=== PATIENT | male | born 1970 | race Caucasian/White ===

== ENCOUNTER 2022-12-29 11:27 | Emergency (ER) | payer OTHER, SELFPAY ==
[2022-12-29] VITALS (10 sets, daily range): BP systolic 128–156; BP diastolic 82–94; PULSE 68–87; RESP 10–18; TEMP 36.3–36.6; O2SAT 98–100
--- NOTE | ~2022-12-29 | XR_ITS ---
XR chest 2V 12/29/2022 12:26 Indication: Chest pain and shortness of breath Procedure: 2 view chest Comparison: No prior studies for comparison. Findings: Heart size normal. There are bilateral nodular densities in the lung bases, largest on the right measuring approximately 1.5 cm. No focal air space disease, pulmonary edema, pleural effusion o r suspected pneumothorax. Impression: 1: No acute cardiopulmonary disease. 2: Bilateral nodular densities in the lung bases. Recommend correlation with CT chest on nonemergent basis. Reviewed, dictated and finalized at location A. Impression: 1: No acute cardiopulmonary disease. 2: Bilateral nodular densities in the lung bases. Recommend correlation with C T chest on nonemergent basis.
--- NOTE | 2022-12-29 11:36 | ECG_ITS ---
Measurements Intervals [place] Rate: 83 P: 14 CO: 160 QRS: -15 QRSD: 92 T: 41 QT: 380 QTc: 448 Interpretive Statements SINUS RHYTHM BASELINE ARTIFACT- I, III, AVR, AVL, AVF NORMAL ECG NO PREVIOUS ECG AVAILABLE FOR COMPARISON Electronically Signed On 12-29-2022 17:16:04 CDT by Saman Vance D.O.
--- NOTE | 2022-12-29 11:42 | ED.DIZZY ---
HPI - Dizziness General Chief Complaint: Dizziness Stated Complaint: DIZZY Time Seen by Provider: 12/29/22 11:41 Source: patient and RN notes reviewed Mode of arrival: ambulatory Limitations: no limitations History of Present Illness HPI Narrative: Patient is 52 years old white female drove himself to the emergency room because of sudden onset of chest tightness, lightheadedness, nausea, tingling numbness of the hands and feet, shaking and jittery feeling inside after fighting with his boss at work today. Patient's symptoms resolved on arrival to the emergency room. History of anxiety, on Xanax. Patient had his Xanax at this morning before going to work because he knew is going to be a stressful day. Patient been working longer hours lately and no break. Feels very stressed. He denies any fever, chills. History of hypertension, hyperlipidemia and depression. Patient is telling me that been having trouble sleeping over the last few days because too much stress at work. Related Data Allergies Allergy/AdvReac Type Severity Reaction Status Date / Time No Known Allergies Allergy Verified 12/29/22 11:37 Review of Systems Review of Systems: All systems reviewed & are unremarkable except as noted in HPI and below Exam Narrative: General appearance: Well-developed, well-nourished Skin: Normal color Head: Normocephalic, nontraumatic Eyes: Clear conjunctiva ENT: Oropharynx normal, ears normal, nose normal Neck: Supple, nontender Chest and respiratory: Airway patent, no respiratory distress, no accessory muscle use Heart: Regular rate/rhythm Abdomen: Soft, nontender, no organomegaly, quiet bowel sounds Vascular: Normal peripheral pulses, normal capillary refill. Musculoskeletal: Normal range of motion, nontender back Neurologic: Alert and oriented ?3, REPLACER is normal as tested, no gross motor deficit Course Vital Signs Vital signs: Vital Signs Temperature 36.6 C 12/29/22 11:31 Pulse Rate 81 12/29/22 11:31 Respiratory Rate 18 12/29/22 11:31 Blood Pressure 150/91 H 12/29/22 11:31 Pulse Oximetry 99 12/29/22 11:31 Temperature 36.6 C 12/29/22 11:31 Pulse Rate 84 12/29/22 11:40 Respiratory Rate 14 12/29/22 11:36 Blood Pressure 156/94 H 12/29/22 11:36 Pulse Oximetry 100 12/29/22 11:36 MDM - Dizziness MDM Narrative Medical decision making narrative: Patient is 52 years old white male drove himself to the emergency room because of sudden onset of chest tightness, lightheadedness, dizziness, shaking numbness of the hands and feet after fighting with his boss at work prior to arrival. Patient had extra Xanax this morning prior to go to work because he knew is going to be a stressful day. Patient symptoms resolved immediately on arrival to the emergency room. Differential diagnosis anxiety-like symptoms. Physical examination showed no acute abnormalities except looks depressed Patient had history of hypertension and hyperlipidemia and depression. Cardiac work-up ordered, patient declined to take any Ativan or Xanax at this time because his feeling okay. Blood work-up showed no acute abnormality to explain patient condition. Chest x-ray showed no acute abnormalities, EKG showed normal sinus rhythm without any acute abnormalities. Anxiety-like symptoms is my concern. My plan to discharge patient home, excuse off work x3 days, and continue home Xanax as needed. The pt was discharged to home.the pt,s condition upon discharge was fair,education was provided to the pt in reference to the final impression,discharge study results,treatment,prognosis and need for follow up . Differential Diagnosis Differential diagnosis:
[2022-12-29 11:48] LABS: Basophils Percent Auto 0.5 % (0.2-1.2); Eosinophils Absolute Auto 0.2 K/mm3 (0-0.3); Eosinophils Percent Auto 3.9 % (0-4.4); Hemoglobin 13.7 g/dL (14.0-18.0); Immature Granulocyte Absolute 0.01 K/mm3 (0.00-0.031); Immature Granulocyte Percent A 0.2 % (0-0.5); Lymphocytes Absolute Auto 1.57 K/mm3 (0.9-3.2); Lymphocytes Percent Auto 27.7 % (18.3-44.2); Mean Corpuscular HGB Conc 35.1 g/dl (32-36); Mean Corpuscular Hemoglobin 32.2 pg (26-34); Mean Corpuscular Volume 91.5 fl (80-100); Mean Platelet Volume 9.5 fl (7.4-10.4); Monocytes Absolute Auto 0.6 K/mm3 (0.1-0.6); Monocytes Percent Auto 10.4 % (2.6-8.5); Neutrophils Absolute Auto 3.2 K/mm3 (1.3-6.7); Neutrophils Percent Auto 57.3 % (45.5-73.1); Platelet Count Result 300 k/mm3 (150-375); Red Blood Count 4.26 M/mm3 (4.6-6.20); Red Cell Distribution Width 12.2 % (11.5-14.5); White Blood Count 5.7 K/mm3 (4.5-10.0)
[2022-12-29 11:59] LABS: Partial Thromboplastin Time 26.1 SECONDS (22.3-36.8); Prothrombin Time 13.2 Seconds (11.1-14.7)
[2022-12-29 12:00] LABS: Alanine Aminotransferase 52 U/L (6-50); Alkaline Phosphatase 41 U/L (38-126); Anion Gap 5 mmol/L (8-16); Aspartate Amino Transferase 38 U/L (17-59); Bilirubin,Total 0.8 mg/dL (0.2-1.3); Blood Urea Nitrogen 11 mg/dL (9-20); Calcium 9.5 mg/dL (8.4-10.2); Carbon Dioxide 31 mmol/L (22-30); Chloride 100 mmol/L (98-107); Estimated CRCL calculation 142 ml/min; Estimated Glomerular Filt Rate > 60; Glucose 142 mg/dL (65-110); Lipase 51 U/L (23-300); Potassium 3.4 mmol/L (3.4-5.0); Sodium 136 mmol/L (137-145)
[2022-12-29 12:10] LABS: Troponin I < 0.012 ng/mL (0.000-0.034)
--- NOTE | 2022-12-29 12:34 | PC.NURSE ---
Pt feeling more calm and relaxed. Denies chest pain or SOB at this time. Updated on results of testing and negative troponin.
--- NOTE | 2022-12-29 12:57 | PC.NURSE ---
Clarified with Dr Ramos, no need for protocol aspirin prior to discharge.
== END 2022-12-29 12:56 | disposition home or self-care (01) ==
PROVIDERS: Emergency Provider Emergency Medicine; PCP Family Medicine
DX: F41.8 Other specified anxiety disorders (principal); I10 Essential (primary) hypertension; E78.5 Hyperlipidemia, unspecified; F32.A Depression, unspecified
CPT/HCPCS: 36415; 71046; 80053; 83690; 84484; 85025; 85610; 85730; 93005; 99283

== ENCOUNTER 2025-04-03 17:03 | Emergency (ER) | payer BC, SELFPAY ==
[2025-04-03 17:05] VITALS: BP 162/89; PULSE 92; RESP 18; TEMP 36.5; O2SAT 96
--- NOTE | 2025-04-03 17:16 | ED_ITS ---
HPI - Recheck/Abnormal Lab/Rx General Chief Complaint: Recheck/Abnormal Lab/Rx <Stormy Moore MD - Last Filed: 04/03/25 20:06> Stated Complaint: took extra BP meds <Stormy Moore MD - Last Filed: 04/03/25 20:06> Time Seen by Provider: 04/03/25 17:14 <Stormy Moore MD - Last Filed: 04/03/25 20:06> Source: patient <Stormy Moore MD - Last Filed: 04/03/25 20:06> Mode of arrival: ambulatory <Stormy Moore MD - Last Filed: 04/03/25 20:06> Limitations: no limitations <Stormy Moore MD - Last Filed: 04/03/25 20:06> History of Present Illness HPI narrative: Patient presents after an accidental overdose. Took his dose of amlodipine 10 mg as scheduled at 0900. He then had 3-4 beers at lunch and was doing work around the house. He knew that he needed to take his atorvastatin 20 mg but instead of grabbing bottle he accidentally grabbed his amlodipine again and took another 1 pill. He realized shortly after. He denies that this was intentional or or any suicidal ideation. Notes that he feels dizzy and nervous now but admits that I'm a little nervous at baseline.He called poison control and was advised to call his primary care physician. It is a Friday. Primary care physician on-call center operator did advise that he present to the emergency department. <Stormy Moore MD - Last Filed: 04/03/25 20:06> Related Data Allergies/Adverse Reactions: Allergies Allergy/AdvReac Type Severity Reaction Status Date / Time No Known Allergies Allergy Verified 04/03/25 17:04 <Stormy Moore MD - Last Filed: 04/03/25 20:06> [facility] Past Medical History Medical History: Medical History (Updated 04/03/25 @ 19:52 by Stormy Moore MD) HLD (hyperlipidemia) Hypertension <Stormy Moore MD - Last Filed: 04/03/25 20:06> Social History Social History: Social History Smoking packs per day: 1 Smoking cigarettes per day: 20.0 Smoking status: Current every day smoker Tobacco type: cigarettes <Stormy Moore MD - Last Filed: 04/03/25 20:06> Exam 2 Narrative: GENERAL: Well-appearing, well-nourished, and in no acute distress. HEAD: Normocephalic, atraumatic. EYES: Non injected, non icteric ENT: Nares clear, no rhinorrhea or epistaxis. Gross auditory acuity intact. NECK: Supple. No meningismus. CHEST: Speaking in full sentences. No respiratory distress. HEART: Regular rate and rhythm. ABDOMEN: Soft, nondistended. EXTREMITIES: Normal range of motion. SKIN: Warm, dry, no rash. NEURO: No focal deficits. Alert and oriented. Answering questions. Following commands. Normal speech without aphasia or dysarthria. PSYCH: Normal mood and affect. Denies suicidal ideation. Does not appear to be responding to internal stimuli. <Stormy Moore MD - Last Filed: 04/03/25 20:06> Course Vital Signs Vital signs: Vital Signs Temperature 36.5 C 04/03/25 17:05 Pulse Rate 92 04/03/25 17:05 Respiratory Rate 18 04/03/25 17:05 Blood Pressure 162/89 H 04/03/25 17:05 Pulse Oximetry 96 04/03/25 17:05 Oxygen Delivery Room Air 04/03/25 17:05 Temperature 36.5 C 04/03/25 17:05 Pulse Rate 79 04/03/25 18:43 Respiratory Rate 14 04/03/25 18:43 Blood Pressure 121/75 04/03/25 17:31 Pulse Oximetry 93 04/03/25 18:43 Oxygen Delivery Room Air 04/03/25 17:05 <Stormy Moore MD - Last Filed: 04/03/25 20:06> Vital Signs Temperature 36.5 C 04/03/25 17:05 Pulse Rate 92 04/03/25 17:05 Respiratory Rate 18 04/03/25 17:05 Blood Pressure 162/89 H 04/03/25 17:05 Pulse Oximetry 96 04/03/25 17:05 Oxygen Delivery Room Air 04/03/25 17:05 Temperature 36.5 C 04/03/25 17:05 Pulse Rate 79 04/03/25 18:43 Respiratory Rate 14 04/03/25 18:43 Blood Pressure 121/75 04/03/25 17:31 Pulse Oximetry 93 04/03/25 18:43 Oxygen Delivery Room Air 04/03/25 17:05 <Mark Callahan MD - Last Filed: 04/03/25 21:43> MDM - Recheck/Abnormal Lab/Rx MDM Narrative Medical decision making narrative: Patient presents with accidental overdose in which he took 1 additional tablet of 10mg amlodipine by accident as he thought it was atorvastatin 20mg. He had already taken his 1st dose of amlodipine at 9:00 a.m. this morning. In the emergency department he is afebrile vital signs notable for hypertension. I did notify the nurse that I would call poison Control to start the process of obtaining recommendation and spoke with contact representative Thaddeus. Case #[id number]. The do recommend observing the patient for 6-12 hours although 6 hours is reasonable given the timing of how far apart these medications were taken unless patient becomes symptomatic. They noted that patient would need cardiac monitoring and said that it was likely not necessary to obtain an EKG although because this is relatively noninvasive, reasonable to do so. They also noted that labs would not particularly be crucial although reasonable to obtain baseline in case patient decompensated. Given 2nd ingestion occurred at 4:00 p.m., this would be 10:00 p.m. Updated patient at approximately 5:50 p.m. and notes that he is a 1 [id number] smoker and in about an hour he anticipates having some fairly significant cravings. Amenable to trying a nicotine patch. Normocytic anemia. Potassium low at 2.8. Both IV and oral repletion are ordered. Repeat BMP will be timed for 21:00 so that it will result before 22:00. Patient borderline low on previous although this was a few years ago. He has slight hypo natremia, had been slightly low before. Patient has an anion gap but is not acidotic and with relatively normal glucose; suspect a degree of possible starvation/alcohol ketosis. Will give 1L IV fluids containing dextrose. Magnesium normal. Patient signed out to oncoming ED attending at 20:00 pending repeat lab and reassessment. <Stormy Moore MD - Last Filed: 04/03/25 20:06> Patient presents with accidental overdose in which he took 1 additional tablet of 10mg amlodipine by accident as he thought it was atorvastatin 20mg. He had already taken his 1st dose of amlodipine at 9:00 a.m. this morning. In the emergency department he is afebrile vital signs notable for hypertension. I did notify the nurse that I would call poison Control to start the process of obtaining recommendation and spoke with contact representative Thaddeus. Case #[id number]. The do recommend observing the patient for 6-12 hours although 6 hours is reasonable given the timing of how far apart these medications were taken unless patient becomes symptomatic. They noted that patient would need cardiac monitoring and said that it was likely not necessary to obtain an EKG although because this is relatively noninvasive, reasonable to do so. They also noted that labs would not particularly be crucial although reasonable to obtain baseline in case patient decompensated. Given 2nd ingestion occurred at 4:00 p.m., this would be 10:00 p.m. Updated patient at approximately 5:50 p.m. and notes that he is a 1 [id number] smoker and in about an hour he anticipates having some fairly significant cravings. Amenable to trying a nicotine patch. Normocytic anemia. Potassium low at 2.8. Both IV and oral repletion are ordered. Repeat BMP will be timed for 21:00 so that it will result before 22:00. Patient borderline low on previous although this was a few years ago. He has slight hypo natremia, had been slightly low before. Patient has an anion gap but is not acidotic and with relatively normal glucose; suspect a degree of possible starvation/alcohol ketosis. Will give 1L IV fluids containing dextrose. Magnesium normal. Patient signed out to oncoming ED attending at 20:00 pending repeat lab and reassessment. Repeat edema showed the the patient has been observed in the emergency department will discharged home <Mark Callahan MD - Last Filed: 04/03/25 21:43> Lab Data Attestation: I reviewed the patient's lab results. <Stormy Moore MD - Last Filed: 04/03/25 20:06> Result diagrams: 04/03/25 17:39 04/03/25 21:08 <Stormy Moore MD - Last Filed: 04/03/25 20:06> Labs: Lab Results 04/03/25 04/03/25 04/03/25 Range/Units 17:39 18:26 18:31 WBC 7.8 (4.5-10.0) K/mm3 RBC 3.91 L (4.6-6.20) M/mm3 Hgb 12.5 L (14.0-18.0) g/dL Hct 35.3 L (42.0-52.0) % MCV 90.3 (80-100) fl MCH 32.0 (26-34) pg MCHC 35.4 (32-36) g/dl RDW 12.3 (11.5-14.5) % Plt Count 247 (150-375) k/mm3 MPV 9.7 (7.4-10.4) fl Immature Gran % (Auto) 0.4 (0-0.5) % Neut % (Auto) 56.3 (45.5-73.1) % Lymph % (Auto) 28.2 (18.3-44.2) % [place] % (Auto) 11.7 H (2.6-8.5) % Eos % (Auto) 2.9 (0-4.4) % Baso % (Auto) 0.5 (0.2-1.2) % Lymph # (Auto) 2.21 (0.9-3.2) K/mm3 [place] # (Auto) 0.9 H (0.1-0.6) K/mm3 Eos # (Auto) 0.2 (0-0.3) K/mm3 Baso # (Auto) 0.0 (0.0-0.1) K/mm3 Abs Immat Gran (auto) 0.03 (0.00-0.031) K/mm3 Absolute Neuts (auto) 4.4 (1.3-6.7) K/mm3 Absolute Nucleated RBC 0.000 (0.0-0.012) K/mm3 Nucleated RBC % 0.0 (0.0-0.2) % Sodium 132 L (137-145) mmol/L Potassium 2.8 L* (3.4-5.0) mmol/L Chloride 95 L (98-107) mmol/L Carbon Dioxide 21 L (22-30) mmol/L Anion Gap 16 H (4-12) mmol/L BUN 16 (9-20) mg/dL Creatinine 0.63 L (0.7-1.3) mg/dL Estim Creat Clear Calc 148 ml/min Estimated GFR > 60 (59 - ) Glucose 115 H (65-110) mg/dL Calcium 9.1 (8.4-10.2) mg/dL Magnesium 1.9 (1.6-2.3) mg/dL Total Bilirubin 0.5 (0.2-1.3) mg/dL AST 34 (17-59) U/L ALT 41 (6-50) U/L Alkaline Phosphatase 31 L (38-126) U/L Total Protein 7.3 (6.3-8.2) g/dL Albumin 4.7 (3.5-5.1) g/dL Urine Color Yellow (Yellow) Urine Appearance Clear (Clear) Urine pH 7.0 (5.0-9.0) Ur Specific [place] 1.005 (1.001-1.035) Urine Protein Negative (Negative) mg/dL Urine Glucose (UA) Negative (Negative) mg/dL Urine Ketones Negative (Negative) mg/dL Ur Blood (Man) Negative (Negative) Urine Nitrate Negative (Negative) Urine Bilirubin Negative (Negative) Urine Urobilinogen 0.2 (<2.0) mg/dL Leukocyte Esterase Rfl Negative (Negative) JAXSON/UL Urine Opiates Screen Negative (Negative) Urine Methadone Screen Negative (Negative) Ur Barbiturates Screen Negative (Negative) Ur Phencyclidine Scrn Negative (Negative) Ur Amphetamine Screen Negative (Negative) U Benzodiazepines Scrn Negative (Negative) Urine Cocaine Screen Negative (Negative) U Cannabinoids Screen Negative (Negative) Ethyl Alcohol 83 (<10) mg/dL 04/03/ Range/Units 21:08 WBC (4.5-10.0) K/mm3 RBC (4.6-6.20) M/mm3 Hgb (14.0-18.0) g/dL Hct (42.0-52.0) % MCV (80-100) fl MCH (26-34) pg MCHC (32-36) g/dl RDW (11.5-14.5) % Plt Count (150-375) k/mm3 MPV (7.4-10.4) fl Immature Gran % (Auto) (0-0.5) % Neut % (Auto) (45.5-73.1) % Lymph % (Auto) (18.3-44.2) % [place] % (Auto) (2.6-8.5) % Eos % (Auto) (0-4.4) % Baso % (Auto) (0.2-1.2) % Lymph # (Auto) (0.9-3.2) K/mm3 [place] # (Auto) (0.1-0.6) K/mm3 Eos # (Auto) (0-0.3) K/mm3 Baso # (Auto) (0.0-0.1) K/mm3 Abs Immat Gran (auto) (0.00-0.031) K/mm3 Absolute Neuts (auto) (1.3-6.7) K/mm3 Absolute Nucleated RBC (0.0-0.012) K/mm3 Nucleated RBC % (0.0-0.2) % Sodium 134 L (137-145) mmol/L Potassium 3.5 (3.4-5.0) mmol/L Chloride 99 (98-107) mmol/L Carbon Dioxide 24 (22-30) mmol/L Anion Gap 11 (4-12) mmol/L BUN 12 (9-20) mg/dL Creatinine 0.56 L (0.7-1.3) mg/dL Estim Creat Clear Calc 165 ml/min Estimated GFR > 60 (59 - ) Glucose 154 H (65-110) mg/dL Calcium 9.1 (8.4-10.2) mg/dL Magnesium (1.6-2.3) mg/dL Total Bilirubin (0.2-1.3) mg/dL AST (17-59) U/L ALT (6-50) U/L Alkaline Phosphatase (38-126) U/L Total Protein (6.3-8.2) g/dL Albumin (3.5-5.1) g/dL Urine Color (Yellow) Urine Appearance (Clear) Urine pH (5.0-9.0) Ur Specific [place] (1.001-1.035) Urine Protein (Negative) mg/dL Urine Glucose (UA) (Negative) mg/dL Urine Ketones (Negative) mg/dL Ur Blood (Man) (Negative) Urine Nitrate (Negative) Urine Bilirubin (Negative) Urine Urobilinogen (<2.0) mg/dL Leukocyte Esterase Rfl (Negative) JAXSON/UL Urine Opiates Screen (Negative) Urine Methadone Screen (Negative) Ur Barbiturates Screen (Negative) Ur Phencyclidine Scrn (Negative) Ur Amphetamine Screen (Negative) U Benzodiazepines Scrn (Negative) Urine Cocaine Screen (Negative) U Cannabinoids Screen (Negative) Ethyl Alcohol (<10) mg/dL <Stormy Moore MD - Last Filed: 04/03/25 20:06> Lab Results 04/03/25 04/03/25 04/03/25 Range/Units 17:39 18:26 18:31 WBC 7.8 (4.5-10.0) K/mm3 RBC 3.91 L (4.6-6.20) M/mm3 Hgb 12.5 L (14.0-18.0) g/dL Hct 35.3 L (42.0-52.0) % MCV 90.3 (80-100) fl MCH 32.0 (26-34) pg MCHC 35.4 (32-36) g/dl RDW 12.3 (11.5-14.5) % Plt Count 247 (150-375) k/mm3 MPV 9.7 (7.4-10.4) fl Immature Gran % (Auto) 0.4 (0-0.5) % Neut % (Auto) 56.3 (45.5-73.1) % Lymph % (Auto) 28.2 (18.3-44.2) % [place] % (Auto) 11.7 H (2.6-8.5) % Eos % (Auto) 2.9 (0-4.4) % Baso % (Auto) 0.5 (0.2-1.2) % Lymph # (Auto) 2.21 (0.9-3.2) K/mm3 [place] # (Auto) 0.9 H (0.1-0.6) K/mm3 Eos # (Auto) 0.2 (0-0.3) K/mm3 Baso # (Auto) 0.0 (0.0-0.1) K/mm3 Abs Immat Gran (auto) 0.03 (0.00-0.031) K/mm3 Absolute Neuts (auto) 4.4 (1.3-6.7) K/mm3 Absolute Nucleated RBC 0.000 (0.0-0.012) K/mm3 Nucleated RBC % 0.0 (0.0-0.2) % Sodium 132 L (137-145) mmol/L Potassium 2.8 L* (3.4-5.0) mmol/L Chloride 95 L (98-107) mmol/L Carbon Dioxide 21 L (22-30) mmol/L Anion Gap 16 H (4-12) mmol/L BUN 16 (9-20) mg/dL Creatinine 0.63 L (0.7-1.3) mg/dL Estim Creat Clear Calc 148 ml/min Estimated GFR > 60 (59 - ) Glucose 115 H (65-110) mg/dL Calcium 9.1 (8.4-10.2) mg/dL Magnesium 1.9 (1.6-2.3) mg/dL Total Bilirubin 0.5 (0.2-1.3) mg/dL AST 34 (17-59) U/L ALT 41 (6-50) U/L Alkaline Phosphatase 31 L (38-126) U/L Total Protein 7.3 (6.3-8.2) g/dL Albumin 4.7 (3.5-5.1) g/dL Urine Color Yellow (Yellow) Urine Appearance Clear (Clear) Urine pH 7.0 (5.0-9.0) Ur Specific [place] 1.005 (1.001-1.035) Urine Protein Negative (Negative) mg/dL Urine Glucose (UA) Negative (Negative) mg/dL Urine Ketones Negative (Negative) mg/dL Ur Blood (Man) Negative (Negative) Urine Nitrate Negative (Negative) Urine Bilirubin Negative (Negative) Urine Urobilinogen 0.2 (<2.0) mg/dL Leukocyte Esterase Rfl Negative (Negative) JAXSON/UL Urine Opiates Screen Negative (Negative) Urine Methadone Screen Negative (Negative) Ur Barbiturates Screen Negative (Negative) Ur Phencyclidine Scrn Negative (Negative) Ur Amphetamine Screen Negative (Negative) U Benzodiazepines Scrn Negative (Negative) Urine Cocaine Screen Negative (Negative) U Cannabinoids Screen Negative (Negative) Ethyl Alcohol 83 (<10) mg/dL 04/03/25 Range/Units 21:08 WBC (4.5-10.0) K/mm3 RBC (4.6-6.20) M/mm3 Hgb (14.0-18.0) g/dL Hct (42.0-52.0) % MCV (80-100) fl MCH (26-34) pg MCHC (32-36) g/dl RDW (11.5-14.5) % Plt Count (150-375) k/mm3 MPV (7.4-10.4) fl Immature Gran % (Auto) (0-0.5) % Neut % (Auto) (45.5-73.1) % Lymph % (Auto) (18.3-44.2) % [place] % (Auto) (2.6-8.5) % Eos % (Auto) (0-4.4) % Baso % (Auto) (0.2-1.2) % Lymph # (Auto) (0.9-3.2) K/mm3 [place] # (Auto) (0.1-0.6) K/mm3 Eos # (Auto) (0-0.3) K/mm3 Baso # (Auto) (0.0-0.1) K/mm3 Abs Immat Gran (auto) (0.00-0.031) K/mm3 Absolute Neuts (auto) (1.3-6.7) K/mm3 Absolute Nucleated RBC (0.0-0.012) K/mm3 Nucleated RBC % (0.0-0.2) % Sodium 134 L (137-145) mmol/L Potassium 3.5 (3.4-5.0) mmol/L Chloride 99 (98-107) mmol/L Carbon Dioxide 24 (22-30) mmol/L Anion Gap 11 (4-12) mmol/L BUN 12 (9-20) mg/dL Creatinine 0.56 L (0.7-1.3) mg/dL Estim Creat Clear Calc 165 ml/min Estimated GFR > 60 (59 - ) Glucose 154 H (65-110) mg/dL Calcium 9.1 (8.4-10.2) mg/dL Magnesium (1.6-2.3) mg/dL Total Bilirubin (0.2-1.3) mg/dL AST (17-59) U/L ALT (6-50) U/L Alkaline Phosphatase (38-126) U/L Total Protein (6.3-8.2) g/dL Albumin (3.5-5.1) g/dL Urine Color (Yellow) Urine Appearance (Clear) Urine pH (5.0-9.0) Ur Specific [place] (1.001-1.035) Urine Protein (Negative) mg/dL Urine Glucose (UA) (Negative) mg/dL Urine Ketones (Negative) mg/dL Ur Blood (Man) (Negative) Urine Nitrate (Negative) Urine Bilirubin (Negative) Urine Urobilinogen (<2.0) mg/dL Leukocyte Esterase Rfl (Negative) JAXSON/UL Urine Opiates Screen (Negative) Urine Methadone Screen (Negative) Ur Barbiturates Screen (Negative) Ur Phencyclidine Scrn (Negative) Ur Amphetamine Screen (Negative) U Benzodiazepines Scrn (Negative) Urine Cocaine Screen (Negative) U Cannabinoids Screen (Negative) Ethyl Alcohol (<10) mg/dL <Mark Callahan MD - Last Filed: 04/03/25 21:43> ECG Data EKG #1: Attestation: I personally reviewed and interpreted this ECG as follows: < Stormy Moore MD - Last Filed: 04/03/25 20:06> ECG completion date: 04/03/25 <Stormy Moore MD - Last Filed: 04/03/25 20:06> ECG completion time: 17:53 <Stormy Moore MD - Last Filed: 04/03/25 20:06> Interpretation: Normal sinus rhythm at a rate of 81 beats per minute. NM interval 149. QRS 99. QT/QTC 371/408. T-wave flattening in 3 but otherwise upright in normal in contiguous inferior leads. No other T-wave inversions. <Stormy Moore MD - Last Filed: 04/03/25 20:06> Discharge Plan Discharge Clinical Impression: Accidental overdose of calcium-channel dominique, Current smoker, Normocytic anemia, Hypokalemia, Hyponatremia, Consumes alcohol <Stormy Moore MD - Last Filed: 04/03/25 20:06> Patient Disposition: Still a Patient <Stormy Moore MD - Last Filed: 04/03/25 20:06> Condition: Stable <Stormy Moore MD - Last Filed: 04/03/25 20:06> Instructions: How to Stop Smoking (ED), Hyponatremia (ED), Hypokalemia (ED), Anemia (ED), Adult Overdose (ED) <Stormy Moore MD - Last Filed: 04/03/25 20:06> Additional Instructions: Your potassium was initially low but you received both oral and IV supplementation. <Stormy Moore MD - Last Filed: 04/03/25 20:06> Patient Language: Burmese <Stormy Moore MD - Last Filed: 04/03/25 20:06> Follow-up/Referrals: mAberly,MD Mich [Primary Care Provider] - <Stormy Moore MD - Last Filed: 04/03/25 20:06> Time of Disposition: 21:43 <Stormy Moore MD - Last Filed: 04/03/25 20:06> 21:43 <Mark Callahan MD - Last Filed: 04/03/25 21:43>
--- NOTE | 2025-04-03 17:28 | ECG_ITS ---
Test Date: 2025-04-03 17:53:44 Measurements Intervals [place] Rate: 81 P: 9 IN: 149 QRS: -50 QRSD: 99 T: 32 QT: 371 QTc: 431 Interpretive Statements SINUS RHYTHM LEFT ANTERIOR FASCICULAR BLOCK BASELINE ARTIFACT- I, AVR, V1-V2 ABNORMAL ECG No previous ECG available for comparison Electronically Signed On 04-03-2025 18:11:31 CDT by Saman Vance D.O.
[2025-04-03 17:31] VITALS: BP 121/75; PULSE 80; RESP 15; O2SAT 93
[2025-04-03 17:59] LABS: Basophils Percent Auto 0.5 % (0.2-1.2); Eosinophils Absolute Auto 0.2 K/mm3 (0-0.3); Eosinophils Percent Auto 2.9 % (0-4.4); Hematocrit 35.3 % (42.0-52.0); Hemoglobin 12.5 g/dL (14.0-18.0); Immature Granulocyte Absolute 0.03 K/mm3 (0.00-0.031); Immature Granulocyte Percent A 0.4 % (0-0.5); Lymphocytes Absolute Auto 2.21 K/mm3 (0.9-3.2); Lymphocytes Percent Auto 28.2 % (18.3-44.2); Mean Corpuscular HGB Conc 35.4 g/dl (32-36); Mean Corpuscular Volume 90.3 fl (80-100); Mean Platelet Volume 9.7 fl (7.4-10.4); Monocytes Absolute Auto 0.9 K/mm3 (0.1-0.6); Monocytes Percent Auto 11.7 % (2.6-8.5); Neutrophils Absolute Auto 4.4 K/mm3 (1.3-6.7); Neutrophils Percent Auto 56.3 % (45.5-73.1); Platelet Count Result 247 k/mm3 (150-375); Red Blood Count 3.91 M/mm3 (4.6-6.20); Red Cell Distribution Width 12.3 % (11.5-14.5); White Blood Count 7.8 K/mm3 (4.5-10.0)
[2025-04-03 18:09] LABS: Alanine Aminotransferase 41 U/L (6-50); Albumin Level 4.7 g/dL (3.5-5.1); Alkaline Phosphatase 31 U/L (38-126); Anion Gap 16 mmol/L (4-12); Aspartate Amino Transferase 34 U/L (17-59); Bilirubin,Total 0.5 mg/dL (0.2-1.3); Blood Urea Nitrogen 16 mg/dL (9-20); Calcium 9.1 mg/dL (8.4-10.2); Carbon Dioxide 21 mmol/L (22-30); Chloride 95 mmol/L (98-107); Estimated CRCL calculation 148 ml/min; Estimated Glomerular Filt Rate > 60; Glucose 115 mg/dL (65-110); Potassium 2.8 mmol/L (3.4-5.0); Sodium 132 mmol/L (137-145); Total Protein 7.3 g/dL (6.3-8.2)
[2025-04-03] MEDS: POTASSIUM BICARBONATE 25 MEQ TABEF 50 MEQ PO (18:27)
[2025-04-03] MEDS: NICOTINE (*PBKC) 14 MG PATCH 1 PATCH TRANSDERM (18:27)
[2025-04-03] MEDS: KCL 20 MEQ/SW 100 ML 100 ML 50 MEQ IVPB (18:28)
[2025-04-03] MEDS: DEXTROSE 5%/0.9% SOD CHL 1,000 ML 250 ML IV CONT (18:38)
[2025-04-03 18:43] VITALS: PULSE 79; RESP 14; O2SAT 93
[2025-04-03 18:43] LABS: Ethanol 83 mg/dL (<10)
[2025-04-03 18:44] LABS: Add Urine Microscopic? NO; Appearance Urine Clear (Clear); Bilirubin Urine Negative (Negative); Blood Urine Negative (Negative); Color Urine Yellow (Yellow); Glucose Urine UA Negative (Negative); Ketones Urine Negative (Negative); Leukocyte Esterase Ur Negative LEU/UL (Negative); Nitrate Urine Negative (Negative); Protein Urine Negative (Negative); Specific Grav Ur 1.005 (1.001-1.035); Urobilinogen Urine 0.2 mg/dL (<2.0)
[2025-04-03 18:50] LABS: Magnesium 1.9 mg/dL (1.6-2.3)
[2025-04-03 19:01] LABS: Amphetamine Screen Urine Negative (Negative); Barbiturate Screen Urine Negative (Negative); Benzodiazepines Screen Urine Negative (Negative); Cannabinoid Screen Urine Negative (Negative); Cocaine Screen Urine Negative (Negative); Methadone Screen Urine Negative (Negative); Opiate Screen Urine Negative (Negative); Phencyclidine Screen Urine Negative (Negative)
[2025-04-03 21:28] LABS: Anion Gap 11 mmol/L (4-12); Blood Urea Nitrogen 12 mg/dL (9-20); Calcium 9.1 mg/dL (8.4-10.2); Carbon Dioxide 24 mmol/L (22-30); Chloride 99 mmol/L (98-107); Estimated CRCL calculation 165 ml/min; Estimated Glomerular Filt Rate > 60; Glucose 154 mg/dL (65-110); Potassium 3.5 mmol/L (3.4-5.0); Sodium 134 mmol/L (137-145)
== END 2025-04-03 22:02 | disposition home or self-care (01) ==
PROVIDERS: Emergency Provider Student in an Organized Health Care Education/Training Program; PCP Family Medicine
DX: T46.1X1A Poisoning by calcium-channel blockers, accidental (unintentional), initial encounter (principal); F17.210 Nicotine dependence, cigarettes, uncomplicated; D64.9 Anemia, unspecified; E87.6 Hypokalemia; E87.1 Hypo-osmolality and hyponatremia; F10.90 Alcohol use, unspecified, uncomplicated; Y90.4 Blood alcohol level of 80-99 mg/100 ml
CPT/HCPCS: 36415; 80048; 80053; 80307; 81003; 82077; 83735; 85025; 93005; 96361; 96365; 96366; 99284; A9270; J3480; J7042